=== PATIENT | female | born 1955 | race Caucasian/White ===

== ENCOUNTER → 2016-02-28 | Outpatient (CLI) | payer OTHER ==
--- NOTE | 2016-02-28 15:44 | US ---
EXAMINATION TYPE: US thyroid st tissue head/neck DATE OF EXAM: 02/28/2016 3:27 PM COMPARISON: NONE CLINICAL HISTORY: US. GLAND SIZE: Right Lobe: 4.9 x 1.4 x 1.9 cm Overall Parenchyma: heterogenous Left Lobe: 4.9 x 1.7 x 1.9 cm Overall Parenchyma: heterogeneous Isthmus Thickness: 0.5 cm NODULES RIGHT: # of nodules measured on right: 0 LEFT: # of nodules measured on left: 0 IMPRESSION: Bilateral neck scanned, no abnormal lymphadenopathy noted.Gland is diffusely heterogene ous. No distinct nodules appreciated at this time. SONOGRAPHIC PATTERNS, ESTIMATED MALIGNANCY RISK AND FNA GUIDANCE FOR THYROID NODULES Sonographic Pattern: Benign Ultrasound Features: Purely Cystic Nodules (No Solid Component) Estimated Risk Of Malignancy, %: <1 FNA Size Cutoff (Largest Dimension): No Biopsy Sonographic Pattern: Very Low Suspicion Ultrasound Features: Spongiform Or Partially Cystic Nodules Without Any Of The Sonographic Features Described In Low, Inte rmediate Or High Suspicion Patterns. Estimated Risk Of Malignancy, %: <3 FNA Size Cutoff (Largest Dimension): Recommend FNA At > 2cm Or Observation Without FNA Sonographic Pattern: Low Suspicion Ultrasound Features: Isoechoic Or Hyperechoic Solid Nodule, Or Partially Cystic Nodule With Eccentric Solid Areas, Without Microcalcification, Irregular Margin Or Ete, Or Taller Than Wide Shape. Estimated Risk Of Malignancy, %: 5-10 FNA Size Cutoff (Largest Dimension): Recommend FNA At > 1.5cm Sonographic Pattern: Intermediate Suspicion Ultrasound Features: Hypoechoic Solid Nodule With Smooth Margins Without Microcalcifications, Ete, Or Taller Than Wide Sha pe. Estimated Risk Of Malignancy, %: 10-20 FNA Size Cutoff (Largest Dimension): Recommend FNA At > 1cm Sonographic Pattern: High Suspicion Ultrasound Features: Solid Hypoechoic Nodule Or Solid Hypoechoic Component Of A Partially Cystic Nodule With One Or More O f The Following Features: Irregular Margins (Infiltrative, Microlobulated), Microcalcifications, Tall er Than Wide Shape, Rim Calcifications With Small Extrusive Soft Tissue Component, Evidence Of Ete Estimated Risk Of Malignancy, %: >70-90 FNA Size Cutoff (Largest Dimension): Recommend FNA At > 1cm
== END | disposition home or self-care (01) ==
LOC: RADUSWWP 15:16
PROVIDERS: ATTEND Family Medicine
DX: E04.9 Nontoxic goiter, unspecified (principal)
CPT/HCPCS: 76536

== ENCOUNTER 2018-01-21 09:39 | Day surgery (SDC) | payer OTHER ==
[2018-01-18 12:28] VITALS: BMI 29.1
[2018-01-21 10:09] VITALS: TEMP 97.5
[2018-01-21] MEDS ORDERED: SODIUM CHLORIDE 0.9% 500 ML 500 ML IV ONE (10:13)
[2018-01-21] MEDS ORDERED: fentaNYL (PF) 50 MCG/ML 2 ML AMP ONE (12:44)
[2018-01-21] MEDS ORDERED: MIDAZOLAM 2 MG/2 ML VIAL ONE (12:44)
[2018-01-21] MEDS: BENZOCAINE SPRAY 1 CAN MUCOUS MEM ONE ×2 (12:55→13:00)
[2018-01-21] MEDS: fentaNYL (PF) 50 MCG/ML 2 ML AMP IVP ONE ×4 (13:00→13:12)
[2018-01-21] MEDS ORDERED: MIDAZOLAM 2 MG/2 ML VIAL IVP ONE ×2 (13:00→13:10)
[2018-01-21] MEDS: MIDAZOLAM 2 MG/2 ML VIAL IVP ONE ×3 (13:04→13:12)
[2018-01-21 13:37] VITALS: BP 124/68; PULSE 76
--- NOTE | 2018-01-21 13:54 | ECHOT ---
TRANSESOPHAGEAL ECHOCARDIOGRAM DATE OF SERVICE: 01/21/2018 PERFORMING PHYSICIAN: Alan Nash MD, [employer]. PROCEDURE PERFORMED: Transesophageal echocardiogram. 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 Because of that, a transesophageal echocardiogram was advised. COMPLICATION: None. LEVEL OF SEDATION: Moderate with sedation length of 10 minutes. PROCEDURE DESCRIPTION: After obtaining an informed consent, explaining the procedure, benefits, risks, complications and alternatives, the patient was brought to the transesophageal echocardiogram suite. A pulse oximetry and heart rate monitors were attached to the patient prior to the procedure. The patient's throat was sprayed using lidocaine locally. Following that, the patient was turned into left lateral position. A bite guard was placed and the patient was then sedated with the above doses of Versed and fentanyl in divided doses. Following that, the transesophageal echocardiogram probe was advanced through the bite guard into the mid esophagus where 2-D echocardiogram images as well as color Doppler images of various cardiac structures were obtained. We evaluated the interatrial septum using 2-D echocardiogram, color Doppler, and contrast study. The procedure was completed. There were no complications. FINDINGS: The left ventricular dimension and systolic function appeared to be within normal limits. Right ventricle appeared to be enlarged. The left atrium appeared to be within normal limits for dimension. The interatrial septum appeared to be intact without any evidence of shunt. The left atrial appendage appeared to be normal. The aortic valve was a trileaflet valve with mild aortic insufficiency. No aortic stenosis. The mitral valve seems to be normal with mild MR. There was moderate tricuspid regurgitation seen. CONCLUSION: 1. Normal left atrial appendage without any evidence of thrombus. 2. Intact interatrial septum without any evidence of shunt. 3. Normal left ventricular dimension and systolic function. 4. Dilated right ventricle with normal function. 5. Trileaflet aortic valve without stenosis with mild insufficiency. 6. Thickened mitral valve leaflets with mild mitral regurgitation. 7. Moderate tricuspid regurgitation was seen. No evidence of pericardial effusion indication. MMODL / IJN: [id number] /
[2018-01-21 13:56] VITALS: RESP 18
== END 2018-01-21 14:15 | disposition home or self-care (01) ==
LOC: CATHCVL 09:39
PROVIDERS: ATTEND Internal Medicine Interventional Cardiology
DX: I08.3 Combined rheumatic disorders of mitral, aortic and tricuspid valves (principal); I10 Essential (primary) hypertension; E78.5 Hyperlipidemia, unspecified; I73.9 Peripheral vascular disease, unspecified; F17.200 Nicotine dependence, unspecified, uncomplicated; Z79.82 Long term (current) use of aspirin; Z79.890 Hormone replacement therapy; Z79.899 Other long term (current) drug therapy; Z88.6 Allergy status to analgesic agent; Z88.1 Allergy status to other antibiotic agents; Z88.5 Allergy status to narcotic agent; Z88.0 Allergy status to penicillin; Z88.8 Allergy status to other drugs, medicaments and biological substances; Z91.09 Other allergy status, other than to drugs and biological substances
CPT/HCPCS: 93312; 93320; 93325; J2250; J3010

== ENCOUNTER 2018-04-30 08:45 | Inpatient (IN) | payer OTHER ==
[2018-04-30] MEDS ORDERED: ONDANSETRON 4 MG/2 ML VIAL IVP STA (08:59)
[2018-04-30] MEDS ORDERED: HYDROmorphone 0.5 MG/0.5 ML SYRINGE IVP STA (08:59)
--- NOTE | 2018-04-30 09:05 | ED ---
General Adult HPI - General Chief complaint: Abdominal Pain Stated complaint: Rt flank pain Time Seen by Provider: 04/30/18 08:52 Source: patient, RN notes reviewed Mode of arrival: wheelchair Limitations: no limitations - History of Present Illness Initial comments: 62-year-old female presents emergency Department with chief complaint of right- sided rib chest wall pain. Patient states that it started suddenly last night worsened today. Patient states is worse when she takes deep inspiration. Patient states she does feel short of breath because of the pain. Patient does admit that she had recent left knee surgery. She states that she had a meniscus repair by Dr. Dempsey. Patient denies any fever, chills. Patient does not take any blood thinners currently. Patient denies any nausea vomiting diarrhea constipation. Denies any abdominal pain no dysuria no hematuria. Patient took some callus morning with no relief of her symptoms. - Related Data Home Medications Medication Instructions Recorded Confirmed Atenolol [Tenormin] 25 mg PO DAILY 03/05/14 04/30/18 Omeprazole [PriLOSEC] 20 mg PO AC-BRKFST 03/05/14 04/30/18 Acetaminophen Tab [Tylenol] 1,000 mg PO Q6HR PRN 12/09/15 04/30/18 Aspirin 325 mg PO DAILY 01/18/18 04/30/18 Atorvastatin [Lipitor] 20 mg PO HS 01/18/18 04/30/18 Oxybutynin Chloride [Ditropan] 5 mg PO DAILY 01/18/18 04/30/18 Thyroid,Pork [[place] Thyroid] 60 mg PO DAILY 01/18/18 04/30/18 Vit C/E/Zn/Coppr/Lutein/Zeaxan 2 cap PO DAILY 01/18/18 04/30/18 [Preservision Areds 2 Softgel] Thyroid,Pork [[place] Thyroid] 90 mg PO DAILY 04/30/18 04/30/18 Allergies Allergy/AdvReac Type Severity Reaction Status Date / Time amoxicillin trihydrate Allergy Rash/Hives Verified 04/30/18 09:00 [From Augmentin] celecoxib [From Celebrex] Allergy Rapid Verified 04/30/18 09:00 Heart Rate cephalexin monohydrate Allergy Rash/Hives Verified 04/30/18 09:00 [From Keflex] codeine Allergy Rash/Hives Verified 04/30/18 09:00 hydrocodone bitartrate Allergy Rash/Hives Verified 04/30/18 09:00 [From Vicodin] Iodinated Contrast- Oral and Allergy Rash/Hives Verified 04/30/18 09:00 IV Dye [Iodinated Contrast Media - IV Dye] levofloxacin [From Levaquin] Allergy Rash/Hives Verified 04/30/18 09:00 potassium clavulanate Allergy Rash/Hives Verified 04/30/18 09:00 [From Augmentin] propoxyphene napsylate Allergy Rash/Hives Verified 04/30/18 09:00 [From Darvocet-N] rofecoxib [From Vioxx] Allergy Rash/Hives Verified 04/30/18 09:00 tramadol HCl [From Ultracet] Allergy Rash/Hives Verified 04/30/18 09:00 Review of Systems ROS Statement: Those systems with pertinent positive or pertinent negative responses have been documented in the HPI. ROS Other: All systems not noted in ROS Statement are negative. Past Medical History Past Medical History: GERD/Reflux, Hypertension, Thyroid Disorder Additional Past Medical History / Comment(s): UNSURE WHY SHE IS TAKING ATENOLOL, DENIES KNOWN HX OF HTN; STATES OCC PALPITATIONS R/T "EXCESS COFFEE"; SAW CV YRS AGO, LATER DIAGNOSED W/ AN ANXIETY ATTACK, hypothyroid, diverticulosis. History of Any Multi-Drug Resistant Organisms: None Reported Past Surgical History: Tubal Ligation Additional Past Surgical History / Comment(s): colonoscopy with benign polypectomy, bilateral cataract removals with lens implants. Past Anesthesia/Blood Transfusion Reactions: No Reported Reaction Past Psychological History: No Psychological Hx Reported, Anxiety, Depression Smoking Status: Former smoker Past Alcohol Use History: None Reported Past Drug Use History: None Reported - Past Family History Father Family Medical History: Myocardial Infarction ([place]) Additional Family Medical History / Comment(s): Father of a [place] at the age of 43yrs. Mother Family Medical History: Cancer Additional Family Medical History / Comment(s): Mother of colon cancer at the age of 54yrs. General Exam Limitations: no limitations General appearance: alert, in no apparent distress Head exam: Present: atraumatic, normocephalic, normal inspection Eye exam: Present: normal appearance, PERRL, EOMI. Absent: scleral icterus, conjunctival injection, periorbital swelling Neck exam: Present: normal inspection. Absent: tenderness, meningismus, lymphadenopathy Respiratory exam: Present: normal lung sounds bilaterally. Absent: respiratory distress, wheezes, rales, rhonchi, stridor, chest wall tenderness Cardiovascular Exam: Present: regular rate, normal rhythm, normal heart sounds. Absent: systolic murmur, diastolic murmur, rubs, gallop, clicks GI/Abdominal exam: Present: soft, normal bowel sounds. Absent: distended, tenderness, guarding, rebound, rigid Back exam: Absent: CVA tenderness (R), CVA tenderness (L) Neurological exam: Present: alert Skin exam: Present: warm, dry, intact, normal color. Absent: rash Course Vital Signs 04/30/18 08:47 Temperature 98.5 F Pulse Rate 84 Respiratory 18 Rate Blood Pressure 154/88 O2 Sat by Pulse 97 Oximetry EKG Findings - EKG Comments: EKG Findings:: EKG performed at 9:10 normal sinus rhythm with rate of 81 ND 1:30 QRS 76 QT/TC 370/429 Medical Decision Making - Medical Decision Making 62-year-old female presents for right-sided chest pain. Patient had lab work, CT of her chest secondary to elevated d-dimer. Patient is noted to have PE. Patient has no evidence of heart strain. Patient will be admitted on heparin. Patient is stable. - Lab Data Result diagrams: 04/30/18 09:10 04/30/18 09:10 Lab Results 04/30/18 04/30/18 04/30/18 Range/Units 09:10 09:10 09:10 WBC 7.2 (3.8-10.6) k/uL RBC 4.66 (3.80-5.40) m/uL Hgb 13.7 (11.4-16.0) gm/dL Hct 42.0 (34.0-46.0) % MCV 90.1 (80.0-100.0) fL MCH 29.4 (25.0-35.0) pg MCHC 32.7 (31.0-37.0) g/dL RDW 12.6 (11.5-15.5) % Plt Count 190 (150-450) k/uL Neutrophils % 78 % Lymphocytes % 11 % Monocytes % 7 % Eosinophils % 1 % Basophils % 0 % Neutrophils # 5.6 (1.3-7.7) k/uL Lymphocytes # 0.8 L (1.0-4.8) k/uL Monocytes # 0.5 (0-1.0) k/uL Eosinophils # 0.1 (0-0.7) k/uL Basophils # 0.0 (0-0.2) k/uL PT 9.6 (9.0-12.0) sec INR 0.9 (<1.2) APTT 25.8 (22.0-30.0) sec D-Dimer 3.63 H (<0.60) mg/L FEU Sodium 139 (137-145) mmol/L Potassium 4.7 (3.5-5.1) mmol/L Chloride 105 (98-107) mmol/L Carbon Dioxide 24 (22-30) mmol/L Anion Gap 10 mmol/L BUN 12 (7-17) mg/dL Creatinine 0.48 L (0.52-1.04) mg/dL Est GFR (CKD-EPI)AfAm >90 (>60 ml/min/1.73 sqM) Est GFR (CKD-EPI)NonAf >90 (>60 ml/min/1.73 sqM) Glucose 124 H (74-99) mg/dL Calcium 9.5 (8.4-10.2) mg/dL Magnesium 1.8 (1.6-2.3) mg/dL Total Bilirubin 1.0 (0.2-1.3) mg/dL AST 15 (14-36) U/L ALT 24 (9-52) U/L Alkaline Phosphatase 73 (38-126) U/L Troponin I (0.000-0.034) ng/mL Total Protein 7.3 (6.3-8.2) g/dL Albumin 4.2 (3.5-5.0) g/dL Lipase 54 (23-300) U/L 04/30/18 Range/Units 09:10 WBC (3.8-10.6) k/uL RBC (3.80-5.40) m/uL Hgb (11.4-16.0) gm/dL Hct (34.0-46.0) % MCV (80.0-100.0) fL MCH (25.0-35.0) pg MCHC (31.0-37.0) g/dL RDW (11.5-15.5) % Plt Count (150-450) k/uL Neutrophils % % Lymphocytes % % Monocytes % % Eosinophils % % Basophils % % Neutrophils # (1.3-7.7) k/uL Lymphocytes # (1.0-4.8) k/uL Monocytes # (0-1.0) k/uL Eosinophils # (0-0.7) k/uL Basophils # (0-0.2) k/uL PT (9.0-12.0) sec INR (<1.2) APTT (22.0-30.0) sec D-Dimer (<0.60) mg/L FEU Sodium (137-145) mmol/L Potassium (3.5-5.1) mmol/L Chloride (98-107) mmol/L Carbon Dioxide (22-30) mmol/L Anion Gap mmol/L BUN (7-17) mg/dL Creatinine (0.52-1.04) mg/dL Est GFR (CKD-EPI)AfAm (>60 ml/min/1.73 sqM) Est GFR (CKD-EPI)NonAf (>60 ml/min/1.73 sqM) Glucose (74-99) mg/dL Calcium (8.4-10.2) mg/dL Magnesium (1.6-2.3) mg/dL Total Bilirubin (0.2-1.3) mg/dL AST (14-36) U/L ALT (9-52) U/L Alkaline Phosphatase (38-126) U/L Troponin I <0.012 (0.000-0.034) ng/mL Total Protein (6.3-8.2) g/dL Albumin (3.5-5.0) g/dL Lipase (23-300) U/L Critical Care Time Critical Care Time: Yes Total Critical Care Time: 35 Critical Care Time: Total 35 minutes of critical care time were used to initially evaluated the patient, review past medical history, review medications, vitals. Patient had initial workup including labs. Lab work revealed elevated d-dimer concerns for PE given that she had recent left knee surgery. Patient only is on aspirin currently. CT shows evidence of bilateral PE, no evidence of heart strain. Troponin is negative at this time. There are nonspecific changes an EKG noted, case discussed with radiologist. Patient was started on high-dose heparin and will be admitted to the hospital with close observation under hospitalist with consult to pulmonology. Disposition Clinical Impression: Bilateral pulmonary embolism Disposition: ADMITTED IP TO THIS HOSP Condition: Fair Referrals: Oralia Bishop DO [Primary Care Provider] - 1-2 days
[2018-04-30 09:30] LABS: Basophils % (A) 0 %; Eosinophils # (A) 0.1 k/uL (0-0.7); Eosinophils % (A) 1 %; HGB 13.7 gm/dL (11.4-16.0); Lymphocytes # (A) 0.8 k/uL (1.0-4.8); Lymphocytes % (A) 11 %; MCH 29.4 pg (25.0-35.0); MCHC 32.7 g/dL (31.0-37.0); MCV 90.1 fL (80.0-100.0); Mean Platelet Volume 7.5; Monocytes # (A) 0.5 k/uL (0-1.0); Monocytes % (A) 7 %; Neutrophils # (A) 5.6 k/uL (1.3-7.7); Neutrophils % (A) 78 %; Platelet Count 190 k/uL (150-450); RBC 4.66 m/uL (3.80-5.40); RDW 12.6 % (11.5-15.5); WBC 7.2 k/uL (3.8-10.6)
[2018-04-30 09:39] LABS: ALT 24 U/L (9-52); AST 15 U/L (14-36); Albumin 4.2 g/dL (3.5-5.0); Alkaline Phosphatase 73 U/L (38-126); Anion Gap 10 mmol/L; Blood Urea Nitrogen 12 mg/dL (7-17); Calcium 9.5 mg/dL (8.4-10.2); Carbon Dioxide 24 mmol/L (22-30); Chloride 105 mmol/L (98-107); Glucose 124 mg/dL (74-99); Lipase 54 U/L (23-300); Magnesium 1.8 mg/dL (1.6-2.3); Potassium 4.7 mmol/L (3.5-5.1); Sodium 139 mmol/L (137-145); Total Protein 7.3 g/dL (6.3-8.2)
--- NOTE | 2018-04-30 09:42 | XR ---
EXAMINATION TYPE: XR chest 2V DATE OF EXAM: 04/30/2018 HISTORY: Chest Pain. REFERENCE: Previous study dated 04/24/2015. FINDINGS: The lungs remain clear. Pleural space are clear. The heart is not enlarged. IMPRESSION: NO ACTIVE CARDIOPULMONARY DISEASE.
[2018-04-30 09:49] LABS: INR 0.9 (<1.2); Partial Thromboplastin Time 25.8 sec (22.0-30.0); Prothrombin Time 9.6 sec (9.0-12.0)
[2018-04-30 09:57] LABS: D-Dimer 3.63 mg/L FEU (<0.60)
[2018-04-30] MEDS ORDERED: FAMOTIDINE 20 MG/2 ML VIAL IV STA (10:03)
[2018-04-30] MEDS ORDERED: diphenhydrAMINE 50 MG/ML 1 ML VIAL IVP STA (10:03)
[2018-04-30] MEDS ORDERED: methylPREDNISolone SOD SUCCI 125 MG/2 ML VIAL IV STA (10:03)
[2018-04-30] MEDS ORDERED: HEPARIN SODIUM,PORCINE 10,000 UNIT/ML 1 ML VIAL IV ONE (11:24)
[2018-04-30] MEDS ORDERED: HEPARIN SODIUM,PORCINE 5,000 UNIT/ML 1 ML VIAL IV PRN (11:24)
--- NOTE | 2018-04-30 11:27 | CT ---
EXAMINATION TYPE: CT chest angio for PE DATE OF EXAM: 04/30/2018 COMPARISON: None. HISTORY: Right sided Chest pain with shortness of breath. Post Knee procedure. CT DLP: 311.5 mGycm Automated exposure control for dose reduction was used. CONTRAST: CT Chest for pulmonary embolism performed with with IV Contrast, patient injected with 100 mL of Isov ue 370. FINDINGS: There is some apical scarring present bilaterally. There are diffuse emphysematous changes throughout both lungs. There is groundglass opacity in the right middle lobe. There is dependent atel ectasis at the lung bases bilaterally. There is no significant axillary, internal mammary, mediastinal or hilar adenopathy. There is pulmonary embolus present in the second and third order branches of the right lower lobe pul monary artery there is also small amount of thrombus in the left lower lobe pulmonary artery. The aor ta is normal in size without evidence of dissection. The heart is normal in size. There is no evidenc e of right heart strain. There is no pleural or pericardial fluid. Visualized upper abdominal structures are unremarkable. IMPRESSION: 1. THIS EXAMINATION IS POSITIVE FOR BILATERAL LOWER LOBE PULMONARY EMBOLI WITHOUT EVIDENCE OF HEART S TRAIN. 2. EMPHYSEMATOUS CHANGE. This report was phoned to Leodan Bobo in the ER time of reporting.
[2018-04-30] MEDS ORDERED: ONDANSETRON 4 MG/2 ML VIAL IVP PRN (11:37)
[2018-04-30] MEDS ORDERED: ACETAMINOPHEN TAB 325 MG TAB PO PRN (11:37)
[2018-04-30] MEDS ORDERED: NALOXONE 0.4 MG/ML 1 ML VIAL IV PRN (11:37)
[2018-04-30] MEDS: HEPARIN SOD,PORK IN 0.45% NACL 25,000 UNIT in 0.45% NACL 1 250ML.BAG IV SCH (12:18)
[2018-04-30 13:03] VITALS: BMI 28.7
[2018-04-30] MEDS: PANTOPRAZOLE 40 MG TABLET PO SCH (15:56)
[2018-04-30] MEDS: ATENOLOL 25 MG TAB PO SCH (15:56)
[2018-04-30] MEDS ORDERED: ASPIRIN 325 MG TAB PO STA (16:09)
[2018-04-30] MEDS: HYDROmorphone 0.5 MG/0.5 ML SYRINGE IVP PRN (16:10)
[2018-04-30] MEDS ORDERED: HYDROcodone/APAP 5-325MG 1 EACH TAB PO PRN (17:01)
--- NOTE | 2018-04-30 17:04 | P.HPIM ---
History of Present Illness H&P Date: 04/30/18 Chief Complaint: Right-sided chest pain Patient is a 62-year-old female with a known history of hypertension, hypothyroidism, GERD, peripheral vascular disease, history of nicotine addiction and recent history of left knee meniscal surgery on Wednesday came to ER with the complaints of right-sided chest pain mainly lower rib cage started in the evening yesterday and has been getting worse. Patient takes her says that pain gets worse with deep breathing and associated with shortness of breath. No headache or dizziness or lightheadedness. Patient otherwise denied any cough is from production. No fever no chills. Patient is currently taking aspirin 320 mg daily. Patient has been ambulating at home. Denied any otherwise recent illnesses. Denied any nausea vomiting and diarrhea. No history of prior blood clots. Patient was found to have elevated d-dimer level. CT angiogram showed positive for bilateral lower lobe pulmonary emboli without evidence of heart strain. Emphysematous change. Review of Systems Constitutional: Patient denies any fever or chills . No generalized weakness or weight loss. Abdomen: Patient denied nausea vomiting and diarrhea and abdominal pain. Cardiovascular: Patient denies any chest pain or short of breath no palpitations. Right lower chest pain.. Respiratory: patient denied any cough is from production. No shortness of breath Neurologic: Patient denied any numbness or tingling headache. Musculoskeletal: Patient denies any complaints of joint swelling or deformity. Skin: Negative Psychiatric: Negative Endocrine: No heat or cold intolerance. No recent weight gain. Genitourinary: No dysuria or hematuria. All other 14 point ROS negative except the above Past Medical History Past Medical History: GERD/Reflux, Hypertension, Thyroid Disorder Additional Past Medical History / Comment(s): UNSURE WHY SHE IS TAKING ATENOLOL, DENIES KNOWN HX OF HTN; STATES OCC PALPITATIONS R/T "EXCESS COFFEE"; SAW CV DR YRS AGO, LATER DIAGNOSED W/ AN ANXIETY ATTACK, hypothyroid, diverticulosis. History of Any Multi-Drug Resistant Organisms: None Reported Past Surgical History: Tubal Ligation Additional Past Surgical History / Comment(s): colonoscopy with benign polypectomy, bilateral cataract removals with lens implants. Past Anesthesia/Blood Transfusion Reactions: No Reported Reaction Past Psychological History: No Psychological Hx Reported, Anxiety, Depression Additional Psychological History / Comment(s): HX OF ANXIETY ATTACKS, NO CURRENT PROB. Denies current depression. Pt lives alone. She is independent. Smoking Status: Former smoker Past Alcohol Use History: None Reported Additional Past Alcohol Use History / Comment(s): Pt started smoking in 1974 and is less than 1 ppd smoker. Past Drug Use History: None Reported - Past Family History Father Family Medical History: Myocardial Infarction ([place]) Additional Family Medical History / Comment(s): Father of a [place] at the age of 43yrs. Mother Family Medical History: Cancer Additional Family Medical History / Comment(s): Mother of colon cancer at the age of 54yrs. Medications and Allergies Home Medications Medication Instructions Recorded Confirmed Type Atenolol [Tenormin] 25 mg PO DAILY 03/05/14 04/30/18 History Omeprazole [PriLOSEC] 20 mg PO AC-BRKFST 03/05/14 04/30/18 History Acetaminophen Tab [Tylenol] 1,000 mg PO Q6HR PRN 12/09/15 04/30/18 History Aspirin 325 mg PO DAILY 01/18/18 04/30/18 History Atorvastatin [Lipitor] 20 mg PO HS 01/18/18 04/30/18 History Oxybutynin Chloride [Ditropan] 5 mg PO DAILY 01/18/18 04/30/18 History Thyroid,Pork [[place] Thyroid] 60 mg PO DAILY 01/18/18 04/30/18 History Vit C/E/Zn/Coppr/Lutein/Zeaxan 2 cap PO DAILY 01/18/18 04/30/18 History [Preservision Areds 2 Softgel] Thyroid,Pork [[place] Thyroid] 90 mg PO DAILY 04/30/18 04/30/18 History Allergies Allergy/AdvReac Type Severity Reaction Status Date / Time amoxicillin trihydrate Allergy Rash/Hives Verified 04/30/18 09:00 [From Augmentin] celecoxib [From Celebrex] Allergy Rapid Verified 04/30/18 09:00 Heart Rate cephalexin monohydrate Allergy Rash/Hives Verified 04/30/18 09:00 [From Keflex] codeine Allergy Rash/Hives Verified 04/30/18 09:00 hydrocodone bitartrate Allergy Rash/Hives Verified 04/30/18 09:00 [From Vicodin] Iodinated Contrast- Oral and Allergy Rash/Hives Verified 04/30/18 09:00 IV Dye [Iodinated Contrast Media - IV Dye] levofloxacin [From Levaquin] Allergy Rash/Hives Verified 04/30/18 09:00 potassium clavulanate Allergy Rash/Hives Verified 04/30/18 09:00 [From Augmentin] propoxyphene napsylate Allergy Rash/Hives Verified 04/30/18 09:00 [From Darvocet-N] rofecoxib [From Vioxx] Allergy Rash/Hives Verified 04/30/18 09:00 tramadol HCl [From Ultracet] Allergy Rash/Hives Verified 04/30/18 09:00 Physical Exam Vitals: Vital Signs Temp Pulse Resp BP Pulse Ox 04/30/18 12:45 98 F 90 18 109/81 94 L 04/30/18 12:30 91 12 04/30/18 12:20 91 17 04/30/18 12:10 84 04/30/18 12:00 16 04/30/18 11:50 94 L 04/30/18 11:40 94 L 04/30/18 11:30 94 L 04/30/18 11:20 16 04/30/18 11:10 18 04/30/18 11:00 18 04/30/18 10:50 77 97 04/30/18 10:40 76 16 141/71 96 04/30/18 10:30 80 15 135/51 97 04/30/18 10:20 82 10 L 135/51 94 L 04/30/18 10:10 78 17 135/51 95 04/30/18 10:00 78 14 92 L 04/30/18 09:50 75 17 93 L 04/30/18 09:40 78 16 94 L 04/30/18 09:20 77 12 137/69 95 04/30/18 09:15 84 16 95 04/30/18 08:47 98.5 F 84 18 154/88 97 Intake and Output 04/29/18 04/30/18 04/30/18 22:59 06:59 14:59 Other: Weight 90.718 kg PHYSICAL EXAMINATION: Patient is lying in the bed comfortably, no acute distress, awake alert and oriented.. HEENT: Normocephalic. Neck is supple. Pupils reactive. Nostrils clear. Oral cavity is moist. Ears reveal no drainage. Neck reveals no JVD, carotid bruits, or thyromegaly. CHEST EXAMINATION: Trachea is central. Symmetrical expansion. Lung dickey clear to auscultation and percussion. CARDIAC: Normal S1, S2 with no gallops. No murmurs ABDOMEN: Soft. Bowel sounds normal. No organomegaly. No abdominal bruits. Extremities: reveal no edema. No clubbing or cyanosis Neurologically awake, alert, oriented x3 with well-coordinated movements. No focal deficits noted Skin: No rash or skin lesions. Psychiatric: Coperative. Nonsuicidal Musculoskeletal: No joint swelling or deformity. Normal range of motion. Left knee meniscal surgical site is bandaged. Results CBC & Chem 7: 04/30/18 09:10 04/30/18 09:10 Labs: Abnormal Lab Results - Last 24 Hours (Table) 04/30/18 04/30/18 04/30/18 Range/Units 09:10 09:10 09:10 Lymphocytes # 0.8 L (1.0-4.8) k/uL D-Dimer 3.63 H (<0.60) mg/L FEU Creatinine 0.48 L (0.52-1.04) mg/dL Glucose 124 H (74-99) mg/dL Thrombosis Risk Factor Assmnt - DVT/VTE Prophylaxis DVT/VTE Prophylaxis: Pharmacologic Prophylaxis ordered Assessment and Plan Assessment: Acute bilateral lower lobe pulmonary emboli. Likely provoked from recent surgery Right-sided Lower rib pleuritic chest pain. Recent left knee meniscal surgery about 6 days ago PVD GERD/Reflux, Hypertension Hypothyroidism Anxiety Previous hx of smoking. Plan. Patient will be continued on heparin drip. Continue with pain management with [place] 5. Patient was given Dilaudid in the ER. Right lower chest pain is improved. Continue the home medications and follow closely. We will change to oral anticoagulants once pain resolves. Further recommendations based on the clinical course. Time with Patient: Greater than 30
[2018-04-30] MEDS: ATORVASTATIN 20 MG TAB PO SCH (21:45)
[2018-05-01] MEDS: HYDROmorphone 0.5 MG/0.5 ML SYRINGE IVP PRN ×3 (00:16→21:41)
[2018-05-01 02:46] LABS: Basophils % (A) 0 %; Eosinophils % (A) 0 %; HGB 11.9 gm/dL (11.4-16.0); Lymphocytes % (A) 12 %; MCH 29.7 pg (25.0-35.0); MCHC 32.3 g/dL (31.0-37.0); MCV 91.9 fL (80.0-100.0); Mean Platelet Volume 8.1; Monocytes # (A) 0.5 k/uL (0-1.0); Monocytes % (A) 6 %; Neutrophils # (A) 6.9 k/uL (1.3-7.7); Neutrophils % (A) 81 %; Platelet Count 182 k/uL (150-450); RBC 4.02 m/uL (3.80-5.40); RDW 12.5 % (11.5-15.5); WBC 8.5 k/uL (3.8-10.6)
[2018-05-01 03:09] LABS: INR 2.1 (<1.2); Prothrombin Time 20.4 sec (9.0-12.0)
[2018-05-01] MEDS: HEPARIN SOD,PORK IN 0.45% NACL 25,000 UNIT in 0.45% NACL 1 250ML.BAG IV SCH ×2 (04:38→11:54)
[2018-05-01] MEDS: PANTOPRAZOLE 40 MG TABLET PO SCH (06:29)
[2018-05-01] MEDS: ASPIRIN 325 MG TAB PO SCH (08:09)
[2018-05-01] MEDS: ATENOLOL 25 MG TAB PO SCH (08:09)
[2018-05-01] MEDS: OXYBUTYNIN CHLORIDE 5 MG TAB PO SCH (08:10)
[2018-05-01] MEDS: THYROID, PORK 30 MG TAB PO SCH (08:10)
[2018-05-01] MEDS ORDERED: THYROID PORK 90 MG PO SCH (09:00)
[2018-05-01] MEDS ORDERED: [UNRECOGNIZED DRUG - OTHER] PO SCH (09:00)
[2018-05-01] MEDS: APIXABAN 5 MG TAB PO SCH (15:22)
[2018-05-01] MEDS: ATORVASTATIN 20 MG TAB PO SCH (21:34)
[2018-05-02 06:41] LABS: Basophils % (A) 0 %; Eosinophils # (A) 0.1 k/uL (0-0.7); Eosinophils % (A) 1 %; HCT 38.4 % (34.0-46.0); HGB 12.4 gm/dL (11.4-16.0); Lymphocytes # (A) 1.4 k/uL (1.0-4.8); Lymphocytes % (A) 17 %; MCHC 32.2 g/dL (31.0-37.0); MCV 90.1 fL (80.0-100.0); Monocytes # (A) 0.4 k/uL (0-1.0); Monocytes % (A) 4 %; Neutrophils # (A) 6.2 k/uL (1.3-7.7); Neutrophils % (A) 76 %; Platelet Count 198 k/uL (150-450); RBC 4.27 m/uL (3.80-5.40); RDW 12.9 % (11.5-15.5); WBC 8.1 k/uL (3.8-10.6)
[2018-05-02] MEDS: PANTOPRAZOLE 40 MG TABLET PO SCH (06:52)
[2018-05-02] MEDS: THYROID, PORK 30 MG TAB PO SCH (08:11)
[2018-05-02] MEDS: APIXABAN 5 MG TAB PO SCH (08:12)
[2018-05-02] MEDS: ATENOLOL 25 MG TAB PO SCH (08:12)
[2018-05-02] MEDS: ASPIRIN 325 MG TAB PO SCH (08:12)
[2018-05-02] MEDS: OXYBUTYNIN CHLORIDE 5 MG TAB PO SCH (08:12)
[2018-05-02 08:19] VITALS: RESP 18
--- NOTE | 2018-05-02 10:49 | P.PN ---
Subjective Progress Note Date: 05/01/18 Principal diagnosis: Bilateral pulmonary embolism acute Patient is a 62-year-old female with a known history of hypertension, hypothyroidism, GERD, peripheral vascular disease, history of nicotine addiction and recent history of left knee meniscal surgery on Wednesday came to ER with the complaints of right-sided chest pain mainly lower rib cage started in the evening yesterday and has been getting worse. Patient takes her says that pain gets worse with deep breathing and associated with shortness of breath. No headache or dizziness or lightheadedness. Patient otherwise denied any cough is from production. No fever no chills. Patient is currently taking aspirin 320 mg daily. Patient has been ambulating at home. Denied any otherwise recent illnesses. Denied any nausea vomiting and diarrhea. No history of prior blood clots. Patient was found to have elevated d-dimer level. CT angiogram showed positive for bilateral lower lobe pulmonary emboli without evidence of heart strain. Emphysematous change. 05/01/2018 Patient denied any complaints of chest pain or shortness of breath. Right lower chest pain with deep breathing is almost resolved. Heparin will be discontinued and patient be started on liquids and check for insurance coverage tomorrow morning. Anticipate discharge tomorrow with more intensive management and anticoagulation final recommendations. No fever no chills. No nausea vomiting or abdominal pain. No diarrhea or dysuria. No hematemesis or melena. Current medications reviewed. Objective - Vital Signs Vital signs: Vital Signs Temp 98.2 F 05/01/18 15:25 Pulse 70 05/01/18 16:00 Resp 18 05/01/18 15:25 BP 142/70 05/01/18 15:25 Pulse Ox 95 05/01/18 15:25 Intake & Output 04/30/18 05/01/18 05/01/18 18:59 06:59 18:59 Intake Total 1250.000 Output Total 400 400 Balance 850.000 -400 Weight 90.718 kg Intake: Intake, IV Titration 250.000 Amount Heparin Sod,Pork in 0.45% 250.000 NaCl 25,000 unit In 0.45 % NaCl 1 250ml.bag @ 18 UNITS/KG/HR 16.329 mls/hr IV .[id number] [facility] Rx#: [id number] Oral 1000 Output: Urine 400 400 Other: Voiding Method Bedside Commode # Voids 2 - Exam PHYSICAL EXAMINATION: Patient is lying in the bed comfortably, no acute distress, awake alert and oriented.. HEENT: Normocephalic. Neck is supple. Pupils reactive. Nostrils clear. Oral cavity is moist. Ears reveal no drainage. Neck reveals no JVD, carotid bruits, or thyromegaly. CHEST EXAMINATION: Trachea is central. Symmetrical expansion. Lung dickey clear to auscultation and percussion. CARDIAC: Normal S1, S2 with no gallops. No murmurs ABDOMEN: Soft. Bowel sounds normal. No organomegaly. No abdominal bruits. Extremities: reveal no edema. No clubbing or cyanosis Neurologically awake, alert, oriented x3 with well-coordinated movements. No focal deficits noted Skin: No rash or skin lesions. Psychiatric: Coperative. Nonsuicidal Musculoskeletal: No joint swelling or deformity. Normal range of motion. Left knee surgical site is intact. - Labs CBC & Chem 7: 05/02/18 05:54 04/30/18 09:10 Labs: Abnormal Lab Results - Last 24 Hours (Table) 05/01/18 05/01/18 05/01/18 Range/Units 02:03 02:03 09:23 PT 20.4 H (9.0-12.0) sec INR 2.1 H (<1.2) APTT 130.0 H* 41.7 H (22.0-30.0) sec Assessment and Plan Assessment: Acute bilateral lower lobe pulmonary emboli. Likely provoked from recent surgery Right-sided Lower rib pleuritic chest pain. Recent left knee meniscal surgery about 6 days ago PVD GERD/Reflux, Hypertension Hypothyroidism Anxiety Previous hx of smoking. Plan. Heparin drip was stopped and will be started o eliquis 10 mg twice a day for 1 week followed by 5 mg twice a day. Continue with pain management with [place] 5. Patient was given Dilaudid in the ER. Right lower chest pain is improved. Continue the home medications and follow closely. Further recommendations based on the clinical course. Time with Patient: Greater than 30
[2018-05-02 12:26] VITALS: BP 114/56; PULSE 64; TEMP 98.1
== END 2018-05-02 14:08 | disposition home or self-care (01) | DRG 176 ==
LOC: EC 08:45 → 3SCARD 11:41
PROVIDERS: ADMIT Hospitalist; ATTEND Hospitalist
DX: I26.99 Other pulmonary embolism without acute cor pulmonale (principal); E03.9 Hypothyroidism, unspecified; F41.1 Generalized anxiety disorder; I10 Essential (primary) hypertension; I73.9 Peripheral vascular disease, unspecified; K21.9 Gastro-esophageal reflux disease without esophagitis; R79.1 Abnormal coagulation profile; Z79.82 Long term (current) use of aspirin; Z79.899 Other long term (current) drug therapy; Z80.0 Family history of malignant neoplasm of digestive organs; Z82.49 Family history of ischemic heart disease and other diseases of the circulatory system; Z87.891 Personal history of nicotine dependence; Z98.42 Cataract extraction status, left eye; Z98.41 Cataract extraction status, right eye; Z96.1 Presence of intraocular lens; Z98.890 Other specified postprocedural states; Z60.2 Problems related to living alone; K57.90 Diverticulosis of intestine, part unspecified, without perforation or abscess without bleeding; Z86.010 Personal history of colon polyps; Z88.5 Allergy status to narcotic agent; Z88.0 Allergy status to penicillin; Z88.1 Allergy status to other antibiotic agents; Z91.041 Radiographic dye allergy status; Z79.890 Hormone replacement therapy
CPT/HCPCS: 36415; 71046; 71275; 80053; 83690; 83735; 83880; 84484; 85025; 85379; 85610; 85730; 93005; 96365; 96375; 96376; 99291

== ENCOUNTER → 2018-05-31 | Outpatient (CLI) | payer OTHER ==
--- NOTE | 2018-05-31 13:26 | US ---
EXAMINATION TYPE: US venous doppler duplex LE LT DATE OF EXAM: 05/31/2018 1:03 PM COMPARISON: CLINICAL HISTORY: left lower ext, pain and swelling M79.605. Bilateral PE x 1 month ago. Left leg sw shona. On blood thinners- [place]. April 25 meniscus repair. SIDE PERFORMED: Left TECHNIQUE: The lower extremity deep venous system is examined utilizing real time linear array sonog tia with graded compression, doppler sonography and color-flow sonography. VESSELS IMAGED: External Iliac Vein (EIV) Common Femoral Vein Deep Femoral Vein Greater Saphenous Vein * Femoral Vein Popliteal Vein Small Saphenous Vein * Proximal Calf Veins (* superficial vessels) Left Leg: Negative for DVT IMPRESSION: 1. Left lower extremity negative for deep venous thrombosis.
== END | disposition home or self-care (01) ==
LOC: RADUSWWP 12:45
PROVIDERS: ATTEND Family Medicine
DX: M79.605 Pain in left leg (principal)

== ENCOUNTER 2018-07-09 14:14 | Emergency (ER) | payer OTHER ==
[2018-07-09 14:18] VITALS: RESP 16; TEMP 98.3
--- NOTE | 2018-07-09 14:54 | ED ---
Extremity Problem HPI - General Source: patient, RN notes reviewed, old records reviewed Mode of arrival: ambulatory Limitations: no limitations <April Cobos - Last Filed: 07/09/18 15:47> <Janeen Max - Last Filed: 07/09/18 16:59> - General Chief complaint: Extremity Problem,Nontraumatic Stated complaint: Ankle/foot edema Time Seen by Provider: 07/09/18 14:20 - History of Present Illness Initial comments: 63-year-old female presents for his today with left lower extremity leg edema. Patient states that she has had this after walking around today and being active. Patient states she's had this happen before. She reports that when she follow-up with her PCP they ordered a Doppler ultrasound. That was negative time. Patient states that she's had history of stenting if in her leg. She denies any fevers or chills, trauma to the leg. (April Cobos) - Related Data Home Medications Medication Instructions Recorded Confirmed Atenolol [Tenormin] 25 mg PO DAILY 03/05/14 04/30/18 Omeprazole [PriLOSEC] 20 mg PO AC-BRKFST 03/05/14 04/30/18 Acetaminophen Tab [Tylenol] 1,000 mg PO Q6HR PRN 12/09/15 04/30/18 Aspirin 325 mg PO DAILY 01/18/18 04/30/18 Atorvastatin [Lipitor] 20 mg PO HS 01/18/18 04/30/18 Oxybutynin Chloride [Ditropan] 5 mg PO DAILY 01/18/18 04/30/18 Thyroid,Pork [[place] Thyroid] 60 mg PO DAILY 01/18/18 04/30/18 Vit C/E/Zn/Coppr/Lutein/Zeaxan 2 cap PO DAILY 01/18/18 04/30/18 [Preservision Areds 2 Softgel] Thyroid,Pork [[place] Thyroid] 90 mg PO DAILY 04/30/18 04/30/18 Previous Rx's Medication Instructions Recorded Apixaban [Eliquis] 5 mg PO BID 30 Days #60 tab 05/02/18 Apixaban [Eliquis] 10 mg PO BID 6 Days #12 tab 05/02/18 Allergies Allergy/AdvReac Type Severity Reaction Status Date / Time amoxicillin trihydrate Allergy Rash/Hives Verified 07/09/18 14:18 [From Augmentin] celecoxib [From Celebrex] Allergy Rapid Verified 07/09/18 14:18 Heart Rate cephalexin monohydrate Allergy Rash/Hives Verified 07/09/18 14:18 [From Keflex] codeine Allergy Rash/Hives Verified 07/09/18 14:18 hydrocodone bitartrate Allergy Rash/Hives Verified 07/09/18 14:18 [From Vicodin] Iodinated Contrast- Oral and Allergy Rash/Hives Verified 07/09/18 14:18 IV Dye [Iodinated Contrast Media - IV Dye] levofloxacin [From Levaquin] Allergy Rash/Hives Verified 07/09/18 14:18 potassium clavulanate Allergy Rash/Hives Verified 07/09/18 14:18 [From Augmentin] propoxyphene napsylate Allergy Rash/Hives Verified 07/09/18 14:18 [From Darvocet-N] rofecoxib [From Vioxx] Allergy Rash/Hives Verified 07/09/18 14:18 tramadol HCl [From Ultracet] Allergy Rash/Hives Verified 07/09/18 14:18 Review of Systems ROS Other: All systems not noted in ROS Statement are negative. <April Cobos - Last Filed: 07/09/18 15:47> ROS Other: All systems not noted in ROS Statement are negative. <Janeen Max - Last Filed: 07/09/18 16:59> ROS Statement: Those systems with pertinent positive or pertinent negative responses have been documented in the HPI. Past Medical History Past Medical History: GERD/Reflux, Hypertension, Thyroid Disorder Additional Past Medical History / Comment(s): UNSURE WHY SHE IS TAKING ATENOLOL, DENIES KNOWN HX OF HTN; STATES OCC PALPITATIONS R/T "EXCESS COFFEE"; SAW CV DR YRS AGO, LATER DIAGNOSED W/ AN ANXIETY ATTACK, hypothyroid, diverticulosis. History of Any Multi-Drug Resistant Organisms: None Reported Past Surgical History: Tubal Ligation Additional Past Surgical History / Comment(s): colonoscopy with benign polypectomy, bilateral cataract removals with lens implants. Past Anesthesia/Blood Transfusion Reactions: No Reported Reaction Past Psychological History: No Psychological Hx Reported, Anxiety, Depression Smoking Status: Former smoker Past Alcohol Use History: None Reported Past Drug Use History: None Reported - Past Family History Father Family Medical History: Myocardial Infarction (MT) Additional Family Medical History / Comment(s): Father of a MT at the age of 43yrs. Mother Family Medical History: Cancer Additional Family Medical History / Comment(s): Mother of colon cancer at the age of 54yrs. <April Cobos - Last Filed: 07/09/18 15:47> General Exam Limitations: no limitations General appearance: alert, in no apparent distress Head exam: Present: atraumatic, normocephalic, normal inspection Eye exam: Present: normal appearance ENT exam: Present: normal exam, mucous membranes moist Neck exam: Present: normal inspection. Absent: tenderness, meningismus, lymphadenopathy Respiratory exam: Present: normal lung sounds bilaterally. Absent: respiratory distress, wheezes, rales, rhonchi, stridor Cardiovascular Exam: Present: regular rate, normal rhythm, normal heart sounds. Absent: systolic murmur, diastolic murmur, rubs, gallop, clicks GI/Abdominal exam: Present: soft, normal bowel sounds. Absent: distended, tenderness, guarding, rebound, rigid Extremities exam: Present: normal inspection, full ROM, normal capillary refill. Absent: tenderness, pedal edema, joint swelling, calf tenderness Left Lower Leg exam: Present: normal inspection, full ROM Ankle exam: Present: normal inspection, full ROM Foot/Toe exam: Present: full ROM, swelling (Patient has swelling noted.). Absent: normal inspection Neurovascular tendon exam: Present: no vascular compromise Back exam: Present: normal inspection Neurological exam: Present: alert, oriented X3, CN II-XII intact Psychiatric exam: Present: normal affect, normal mood Skin exam: Present: warm, dry, intact, normal color. Absent: rash <April Cobos - Last Filed: 07/09/18 15:47> - General Exam Comments Initial Comments: Physical 63-year-old female. Alert and oriented 3. No significant distress. (April Cobos) Course Vital Signs 07/09/18 07/09/18 14:15 15:55 Temperature 98.3 F Pulse Rate 62 67 Respiratory 16 16 Rate Blood Pressure 131/63 128/60 O2 Sat by Pulse 100 99 Oximetry Medical Decision Making - Radiology Data Radiology results: report reviewed <April Cobos - Last Filed: 07/09/18 15:47> <Janeen Max - Last Filed: 07/09/18 16:59> - Medical Decision Making Is a 3-year-old female presents with left lower ankle and leg edema after standing on her leg all day. She reports that she is concerned for possible clot. She has minimal edema at this time. Patient Dopplers negative for DVT. Discharging with follow-up with her primary care doctor. Discussed just dependent edema and needs to wear compression stockings. (April Cobos) I was available for consultation in the emergency department. The history and physical exam were done by the Midlevel Provider. Medical decision making was done by the Midlevel Provider. I have reviewed the chart, however was not consulted specifically or made aware of this patient by the above midlevel provider and did not personally evaluate, interact with, or disposition this patient on the day of their visit Chart was dictated using [employer] dictation software. Attempts were made to correct any dictation errors however some typographical errors may persist. (Janeen Max) - Radiology Data Ultrasound is negative for DVT. (April Cobos) Disposition Is patient prescribed a controlled substance at d/c from ED?: No Time of Disposition: 15:48 <April Cobos - Last Filed: 07/09/18 15:47> <Janeen Max - Last Filed: 07/09/18 16:59> Clinical Impression: Dependent edema Disposition: HOME SELF-CARE Condition: Good Instructions (If sedation given, give patient instructions): Lymphedema (ED) Additional Instructions: Patient advised to follow-up with primary care doctor. Wear compression stockings. Rest, ice and elevate the leg. Return to emergency department if any alarming signs or symptoms occur. Referrals: Oralia Bishop DO [Primary Care Provider] - 1-2 days
--- NOTE | 2018-07-09 15:31 | US ---
EXAMINATION TYPE: US venous doppler duplex LE LT DATE OF EXAM: 07/09/2018 3:24 PM COMPARISON: US 05/31/2018 DOPPLER left lower extremity CLINICAL HISTORY: Pain. Left ankle pain and swelling x 1 day, patient on blood thinners. SIDE PERFORMED: Left TECHNIQUE: The lower extremity deep venous system is examined utilizing real time linear array sonog tia with graded compression, doppler sonography and color-flow sonography. VESSELS IMAGED: External Iliac Vein (EIV) Common Femoral Vein Deep Femoral Vein Greater Saphenous Vein * Femoral Vein Popliteal Vein Small Saphenous Vein * Proximal Calf Veins (* superficial vessels) There is normal flow, compressibility, vascular waveforms. Left Leg: Appears negative for DVT IMPRESSION: No evident deep venous arthrosis at or above the left knee. Follow-up as indicated.
[2018-07-09 16:04] VITALS: BP 128/60; PULSE 67
== END 2018-07-09 15:55 | disposition home or self-care (01) ==
LOC: EC 14:14
DX: R60.0 Localized edema (principal); K21.9 Gastro-esophageal reflux disease without esophagitis; I10 Essential (primary) hypertension; E07.9 Disorder of thyroid, unspecified; Z79.82 Long term (current) use of aspirin; Z79.890 Hormone replacement therapy; Z79.899 Other long term (current) drug therapy; Z88.0 Allergy status to penicillin; Z88.1 Allergy status to other antibiotic agents; Z88.5 Allergy status to narcotic agent; Z91.041 Radiographic dye allergy status; Z88.8 Allergy status to other drugs, medicaments and biological substances; Z88.6 Allergy status to analgesic agent; Z87.891 Personal history of nicotine dependence
CPT/HCPCS: 99284

== ENCOUNTER 2021-04-23 07:32 | Day surgery (SDC) | payer OTHER ==
[2021-04-21 10:32] VITALS: BMI 29.5
[2021-04-23] MEDS ORDERED: LACTATED RINGERS 1,000 ML IV SCH (07:47)
[2021-04-23] MEDS ORDERED: LIDOCAINE 1% (10MG/ML) FOR IV START INTRADERMA PRN (07:47)
[2021-04-23 08:06] VITALS: TEMP 97.7
--- NOTE | 2021-04-23 08:18 | P.GSHP ---
History of Present Illness H&P Date: 04/23/21 CHIEF COMPLAINT: GERD and colon screen HISTORY OF PRESENT ILLNESS: The patient is a 65-year-old female who presents with gastroesophageal reflux disease and need for colon screen. Upper and lower endoscopy were offered for further evaluation and management. PAST MEDICAL HISTORY: Please see list. PAST SURGICAL HISTORY: Please see list. MEDICATIONS: Please see list. ALLERGIES: Please see list. SOCIAL HISTORY: No illicit drug use FAMILY HISTORY: No reports of Crohn disease or ulcerative colitis. REVIEW OF ORGAN SYSTEMS: CONSTITUTIONAL: No reports of fevers or chills. GI: Denies any blood in stools or constipation. PHYSICAL EXAM: VITAL SIGNS: Stable GENERAL: Well-developed pleasant in no acute distress. HEENT: No scleral icterus. Extraocular movements grossly intact. Moist buccal mucosa. NECK: Supple without lymphadenopathy. CHEST: Unlabored respirations. Equal bilateral excursions. CARDIOVASCULAR: Regular rate and rhythm. Distal 2+ pulses. ABDOMEN: Soft, nondistended. MUSCULOSKELETAL: No clubbing, cyanosis, or edema. ASSESSMENT: 1. Gastroesophageal reflux disease 2. Colon screen. PLAN: 1. Recommend proceeding with an upper and lower endoscopy Past Medical History Past Medical History: GERD/Reflux, Hypertension, Osteoarthritis (OA), Pulmonary Embolus (PE), Thyroid Disorder Additional Past Medical History / Comment(s): occ migraines, "a little high blood pressure", PE 4 yrs ago, "weak bladder" History of Any Multi-Drug Resistant Organisms: None Reported Past Surgical History: Orthopedic Surgery, Tubal Ligation Additional Past Surgical History / Comment(s): bilateral cataract removals with lens implants. left knee arthroscopy, stent left leg Past Anesthesia/Blood Transfusion Reactions: No Reported Reaction Smoking Status: Former smoker - Past Family History Father Family Medical History: Myocardial Infarction (SC) Additional Family Medical History / Comment(s): Father of a [place] at the age of 43yrs. Mother Family Medical History: Cancer Additional Family Medical History / Comment(s): colon cancer Son(s) Family Medical History: Cancer Medications and Allergies Home Medications Medication Instructions Recorded Confirmed Type Atenolol [Tenormin] 25 mg PO DAILY 03/05/14 04/23/21 History Omeprazole [PriLOSEC] 40 mg PO AC-BRKFST 03/05/14 04/23/21 History Acetaminophen Tab [Tylenol] 1,000 mg PO Q6HR PRN 12/09/15 04/23/21 History Apixaban [Eliquis] 5 mg PO BID 30 Days #60 tab 05/02/18 04/23/21 Rx Famotidine [Pepcid] 40 mg PO QAM 04/21/21 04/23/21 History Meloxicam [Mobic] 15 mg PO DAILY 04/21/21 04/23/21 History Mirabegron [Myrbetriq] 50 mg PO DAILY 04/21/21 04/23/21 History Rosuvastatin [Crestor] 20 mg PO DAILY 04/21/21 04/23/21 History Thyroid,Pork [[employer] Thyroid] 90 mg PO QAM 04/21/21 04/23/21 History Allergies Allergy/AdvReac Type Severity Reaction Status Date / Time amoxicillin trihydrate Allergy Rash/Hives Verified 04/23/21 07:56 [From Augmentin] celecoxib [From Celebrex] Allergy Rapid Verified 04/23/21 07:56 Heart Rate cephalexin monohydrate Allergy Rash/Hives Verified 04/23/21 07:56 [From Keflex] codeine Allergy Rash/Hives Verified 04/23/21 07:56 hydrocodone bitartrate Allergy Rash/Hives Verified 04/23/21 07:56 [From Vicodin] Iodinated Contrast Media Allergy Rash/Hives Verified 04/23/21 07:56 [Iodinated Contrast Media - IV Dye] levofloxacin [From Levaquin] Allergy Rash/Hives Verified 04/23/21 07:56 potassium clavulanate Allergy Rash/Hives Verified 04/23/21 07:56 [From Augmentin] propoxyphene napsylate Allergy Rash/Hives Verified 04/23/21 07:56 [From Darvocet-N] rofecoxib [From Vioxx] Allergy Rash/Hives Verified 04/23/21 07:56 tramadol HCl [From Ultracet] Allergy Rash/Hives Verified 04/23/21 07:56 Surgical - Exam Vital Signs Temp Pulse Resp BP Pulse Ox 97.7 F 91 18 136/73 97 04/23/21 08:04 04/23/21 08:04 04/23/21 08:04 04/23/21 08:04 04/23/21 08:04
[2021-04-23] MEDS ORDERED: PROPOFOL 10 MG/ML 20 ML VIAL IV ONE (08:43)
[2021-04-23] MEDS ORDERED: LIDOCAINE 1% INJ 10MG/ML (20 ML MDV) ONE (08:43)
--- NOTE | 2021-04-23 08:56 | P.PCN ---
Date of Procedure: 04/23/21 Description of Procedure: PREOPERATIVE DIAGNOSIS: Gastroesophageal reflux disease. POSTOPERATIVE DIAGNOSIS: Gastritis. Gastroesophageal reflux disease. Diaphragmatic hiatal hernia OPERATION: Esophagogastroduodenoscopy with biopsies along antrum. SURGEON: Cristina Davalos MD ANESTHESIA: MAC. INDICATIONS: The patient is a 65-year-old female who presents with reflux disease. Benefits and risks of the procedure were described. Informed consent was obtained. DESCRIPTION: The patient was brought into the endoscopy suite and laid in the left lateral decubitus position. An Olympus gastroscope was passed along the posterior oropharynx down to the distal esophagus where the squamocolumnar junction was encountered at 40 cm from the incisors. The stomach was entered and no bile reflux was found. Additional findings are listed below. Biopsies with cold forceps were obtained of the antrum. The first through third portion of the duodenum was examined and unremarkable. Retroflexion of the scope confirmed Hill grade 3 lower esophageal valve. The squamocolumnar junction demonstrated LA grade B erosive esophagitis. The stomach was desufflated. The patient tolerated the procedure well. FINDINGS: Squamocolumnar junction 40 cm from the incisors. Diaphragmatic hiatus at 41 cm. Hiatal hernia, 1 cm Hill grade 2 lower esophageal valve. LA grade B erosive esophagitis. No active duodenitis. Chronic gastritis RECOMMENDATIONS: Upper endoscopy as needed.
--- NOTE | 2021-04-23 09:18 | P.PCN ---
Date of Procedure: 04/23/21 Description of Procedure: PREOPERATIVE DIAGNOSIS: Personal history colon polyps Colonoscopy screening. POSTOPERATIVE DIAGNOSIS: Personal history colon polyps Colonoscopy screening. Diverticulosis, scattered. OPERATION: Colonoscopy to the ascending colon. SURGEON: Cristina Davalos MD. ANESTHESIA: MAC. INDICATIONS: The patient is a 65-year-old female who presents for colonoscopy screening. Last colonoscopy over 5 years ago. Benefits and risks were described and informed consent was obtained. DESCRIPTION OF PROCEDURE: The patient had undergone Sutab prep. The patient had been brought into the operating room and laid in the left lateral decubitus position. After adequate intravenous sedation, the rectum was examined with 2% lidocaine jelly. No external hemorrhoids were encountered. The rectal tone was within normal limits. No lesions were palpated in the rectal vault. An Olympus colonoscope was advanced to the ascending colon were clearly viewed. The prep was excellent. Scattered diverticulosis was encountered. No colonic polyps were found. No evidence of focal colitis was found. Retroflexion of the scope demonstrated grade 1 internal hemorrhoids without active bleeding or inflammation. The colon was desufflated. The patient had tolerated the procedure well. Withdrawal time was over 6 minutes. FINDINGS: Aronchick preparation quality scale 1 (1-5) Internal hemorrhoids, grade 1 No external prolapsed hemorrhoids. No arteriovenous malformations. No adenomatous polyps. No focal colitis. Scattered diverticulosis RECOMMENDATIONS: Lower endoscopy in 5 years, 2026 Plan - Discharge Summary New Discharge Prescriptions: Continue Omeprazole [PriLOSEC] 40 mg PO AC-BRKFST Atenolol [Tenormin] 25 mg PO DAILY Acetaminophen Tab [Tylenol] 1,000 mg PO Q6HR PRN PRN Reason: Pain Apixaban [Eliquis] 5 mg PO BID 30 Days #60 tab Mirabegron [Myrbetriq] 50 mg PO DAILY Meloxicam [Mobic] 15 mg PO DAILY Thyroid,Pork [[place] Thyroid] 90 mg PO QAM Famotidine [Pepcid] 40 mg PO QAM Rosuvastatin [Crestor] 20 mg PO DAILY Discharge Medication List Atenolol [Tenormin] 25 mg PO DAILY 03/05/14 [History] Omeprazole [PriLOSEC] 40 mg PO AC-BRKFST 03/05/14 [History] Acetaminophen Tab [Tylenol] 1,000 mg PO Q6HR PRN 12/09/15 [History] Apixaban [Eliquis] 5 mg PO BID 30 Days #60 tab 05/02/18 [Rx] Famotidine [Pepcid] 40 mg PO QAM 04/21/21 [History] Meloxicam [Mobic] 15 mg PO DAILY 04/21/21 [History] Mirabegron [Myrbetriq] 50 mg PO DAILY 04/21/21 [History] Rosuvastatin [Crestor] 20 mg PO DAILY 04/21/21 [History] Thyroid,Pork [[place] Thyroid] 90 mg PO QAM 04/21/21 [History] Follow up Appointment(s)/Referral(s): Cristina Davalos MD [STAFF PHYSICIAN] - 05/13/21 Patient Instructions/Handouts: *Surgery [facility] - (Anesthesia) Endoscopy Discharge Instructions, Colonoscopy (DC), Upper Endoscopy (DC), Diverticulosis Diet (GEN), Diverticulosis (GEN), Hiatal Hernia (DC) Activity/Diet/Wound Care/Special Instructions: Repeat colonoscopy in 5 years, 2026 Discharge Disposition: HOME SELF-CARE
[2021-04-23 09:29] VITALS: BP 143/65; PULSE 75; RESP 18
== END 2021-04-23 10:01 | disposition home or self-care (01) ==
LOC: ORWHC2ENDO 07:32
PROVIDERS: ATTEND Surgery Plastic and Reconstructive Surgery
DX: Z12.11 Encounter for screening for malignant neoplasm of colon (principal); K57.30 Diverticulosis of large intestine without perforation or abscess without bleeding; K29.50 Unspecified chronic gastritis without bleeding; K64.0 First degree hemorrhoids; K44.9 Diaphragmatic hernia without obstruction or gangrene; K22.10 Ulcer of esophagus without bleeding; K21.9 Gastro-esophageal reflux disease without esophagitis; Z86.010 Personal history of colon polyps; I10 Essential (primary) hypertension; M19.90 Unspecified osteoarthritis, unspecified site; Z86.711 Personal history of pulmonary embolism; E07.9 Disorder of thyroid, unspecified; G43.909 Migraine, unspecified, not intractable, without status migrainosus; Z98.51 Tubal ligation status; Z98.42 Cataract extraction status, left eye; Z98.41 Cataract extraction status, right eye; Z96.1 Presence of intraocular lens; Z95.820 Peripheral vascular angioplasty status with implants and grafts; Z98.890 Other specified postprocedural states; Z87.891 Personal history of nicotine dependence; Z82.49 Family history of ischemic heart disease and other diseases of the circulatory system; Z80.0 Family history of malignant neoplasm of digestive organs; Z79.01 Long term (current) use of anticoagulants; Z79.1 Long term (current) use of non-steroidal anti-inflammatories (NSAID); Z79.890 Hormone replacement therapy; Z79.899 Other long term (current) drug therapy; Z88.5 Allergy status to narcotic agent; Z88.0 Allergy status to penicillin; Z88.8 Allergy status to other drugs, medicaments and biological substances; Z91.041 Radiographic dye allergy status
CPT/HCPCS: 88305; 43239; J2001; J2704; G0105; 45378

== ENCOUNTER 2021-08-07 16:50 | Emergency (ER) | payer OTHER ==
[2021-08-07 18:38] VITALS: RESP 18; TEMP 97.5
--- NOTE | 2021-08-07 19:40 | XR ---
EXAMINATION TYPE: XR knee complete LT DATE OF EXAM: 08/07/2021 7:14 PM INDICATION: Patient age:Female; 66 years old; Reason for study: fall; COMPARISON: None. TECHNIQUE: The Left knee(s) was examined in 3, AP lateral and oblique. Projections. FINDINGS: No evidence of any acute osseous pathology, joint space narrowing, soft tissue swelling, or joint effusion is noted. Mild osteophyte formation of the tibial plateau and patella. IMPRESSION: 1. No acute osseous pathology. 2. Mild tricompartmental osteoarthritic changes.
--- NOTE | 2021-08-07 19:41 | XR ---
EXAMINATION TYPE: XR ankle complete LT DATE OF EXAM: 08/07/2021 7:14 PM INDICATION: Patient age:Female; 66 years old; Reason for study: fall; COMPARISON: None TECHNIQUE: The left ankle is imaged in frontal lateral and oblique projections. FINDINGS: No evidence of acute fracture. There is soft tissue swelling along the anterior, medial and dorsal as pect of the foot. There is plantar calcaneal spurring. No radiopaque foreign bodies. IMPRESSION: Soft tissue swelling along the anterior, medial and dorsum of the foot. No definitive fracture identi fied.
--- NOTE | 2021-08-07 23:48 | ED ---
Lower Extremity Injury HPI - General Chief Complaint: Extremity Injury, Lower Stated Complaint: Fall,Lt Knee Pain,Pt on Blood Thinners Time Seen by Provider: 08/07/21 23:23 Source: patient, RN notes reviewed Mode of arrival: wheelchair Limitations: no limitations - History of Present Illness Initial Comments: This is a pleasant 66-year-old female who was at a local shopping center when she caught her left toe on an uneven area of pavement. Patient then came down on her left knee. Patient is able to ambulate with increased pain and otalgia. Complaining of pain to the anterior aspect of left knee which is exacerbated by movement and palpation. Mild pain at the ankle, no radiation elsewhere. Patient took Tylenol prior to me seeing her. Patient does have a history of a torn meniscus in the left knee. There was no head or neck injury. Patient is on anticoagulant medication. No hip pain. No pelvis pain. There is no preceding symptomology. No headache, no fever or chills, no changes in vision or hearing, no sore throat or difficulty with speech, no neck pain, no chest pain or shortness of breath, no abdominal pain, no nausea or vomiting, no changes in urination or bowel movements, no numbness or tingling, no skin rashes or lesions. 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] 90 mg PO QAM 04/21/21 04/23/21 Previous Rx's Medication Instructions Recorded Apixaban [Eliquis] 5 mg PO BID 30 Days #60 tab 05/02/18 Allergies Allergy/AdvReac Type Severity Reaction Status Date / Time amoxicillin trihydrate Allergy Rash/Hives Verified 08/07/21 18:38 [From Augmentin] celecoxib [From Celebrex] Allergy Rapid Verified 08/07/21 18:38 Heart Rate cephalexin monohydrate Allergy Rash/Hives Verified 08/07/21 18:38 [From Keflex] codeine Allergy Rash/Hives Verified 08/07/21 18:38 hydrocodone bitartrate Allergy Rash/Hives Verified 08/07/21 18:38 [From Vicodin] Iodinated Contrast Media Allergy Rash/Hives Verified 08/07/21 18:38 [Iodinated Contrast Media - IV Dye] levofloxacin [From Levaquin] Allergy Rash/Hives Verified 08/07/21 18:38 potassium clavulanate Allergy Rash/Hives Verified 08/07/21 18:38 [From Augmentin] propoxyphene napsylate Allergy Rash/Hives Verified 08/07/21 18:38 [From Darvocet-N] rofecoxib [From Vioxx] Allergy Rash/Hives Verified 08/07/21 18:38 tramadol HCl [From Ultracet] Allergy Rash/Hives Verified 08/07/21 18:38 Review of Systems ROS Statement: Those systems with pertinent positive or pertinent negative responses have been documented in the HPI. ROS Other: All systems not noted in ROS Statement are negative. Past Medical History Past Medical History: GERD/Reflux, Hypertension, Osteoarthritis (OA), Pulmonary Embolus (PE), Thyroid Disorder Additional Past Medical History / Comment(s): occ migraines, "a little high blood pressure", PE 4 yrs ago, "weak bladder" History of Any Multi-Drug Resistant Organisms: None Reported Past Surgical History: Orthopedic Surgery, Tubal Ligation Additional Past Surgical History / Comment(s): bilateral cataract removals with lens implants. left knee arthroscopy, stent left leg Past Anesthesia/Blood Transfusion Reactions: No Reported Reaction Past Psychological History: No Psychological Hx Reported Smoking Status: Former smoker Past Alcohol Use History: None Reported Past Drug Use History: None Reported - Past Family History Father Family Medical History: Myocardial Infarction (NE) Additional Family Medical History / Comment(s): Father of a NE at the age of 43yrs. Mother Family Medical History: Cancer Additional Family Medical History / Comment(s): colon cancer Son(s) Family Medical History: Cancer General Exam Limitations: no limitations General appearance: alert, in no apparent distress Head exam: Present: atraumatic, normocephalic, normal inspection Eye exam: Present: normal appearance, EOMI. Absent: scleral icterus, conjunctival injection, periorbital swelling ENT exam: Present: normal exam, mucous membranes moist, normal external ear exam Neck exam: Present: normal inspection, full ROM. Absent: tenderness, meningismus, lymphadenopathy Respiratory exam: Present: normal lung sounds bilaterally. Absent: respiratory distress, wheezes, rales, rhonchi, stridor, chest wall tenderness, accessory muscle use Cardiovascular Exam: Present: regular rate, normal rhythm, normal heart sounds. Absent: systolic murmur, diastolic murmur, rubs, gallop, clicks GI/Abdominal exam: Present: soft. Absent: distended, tenderness, guarding, rebound, rigid Extremities exam: Present: full ROM, normal capillary refill. Absent: normal inspection (Patient has edema and an abrasion noted to the anterior aspect of left knee. No crepitus. Full range of motion with increased pain. Evidence of mild effusion. Mr. stable as tested. Left ankle has mild edema with no bony point tenderness. Ligaments are stable. Pedal pulses are 2+ out of 4. ), tenderness, pedal edema, joint swelling, calf tenderness Back exam: Present: normal inspection, full ROM. Absent: paraspinal tenderness, vertebral tenderness, rash noted Neurological exam: Present: alert, oriented X3, CN II-XII intact, abnormal gait (Mild antalgia) Psychiatric exam: Present: normal affect, normal mood Skin exam: Present: warm, dry, intact, normal color, abrasion (Left anterior knee). Absent: rash, cyanosis, diaphoretic, erythema, urticaria, vesicles, petechiae, pallor, mottled Course Vital Signs 08/07/21 18:35 Temperature 97.5 F L Pulse Rate 68 Respiratory 18 Rate Blood Pressure 125/68 O2 Sat by Pulse 99 Oximetry Medical Decision Making - Medical Decision Making Patient has what appears to be contusion of the left knee. Mild left ankle sprain. I did discuss x-ray findings with the patient. Discussed the possibility of internal derangement. Discussed possibly of occult fracture. We'll place the patient in a knee immobilizer. Patient is able to ambulate. We'll have the patient follow-up with orthopedics. Patient understands this plan. All questions answered. Patient was told to return to the ER for any signs or symptoms worsen. Told to return immediately if any other problems arise. All questions answered. Treatment plan discussed. Patient in agreement Every effort has been made to ensure accuracy of this dictation. However, due to the limitations of electronic medical records and dictation devices, errors in charting still occur. Adult Nurse Practitioner Dr. Boykin - Radiology Data Radiology results: report reviewed, image reviewed Disposition Clinical Impression: Contusion of left knee, initial encounter, Abrasion, left knee, initial encounter, Left ankle sprain Disposition: HOME SELF-CARE Condition: Good Instructions (If sedation given, give patient instructions): Ankle Sprain (ED), Knee Pain (ED) Additional Instructions: No headache, no fever or chills, no changes in vision or hearing, no sore throat or difficulty with speech, no neck pain, no chest pain or shortness of breath, no abdominal pain, no nausea or vomiting, no changes in urination or bowel movements, no numbness or tingling, no extremity pain, no skin rashes or lesions. Is patient prescribed a controlled substance at d/c from ED?: No Referrals: Jordan Mcintosh DO [Doctor of Osteopathic Medicine] - 1-2 days Time of Disposition: 23:41
[2021-08-08 00:41] VITALS: BP 120/68; PULSE 70
== END 2021-08-08 00:43 | disposition home or self-care (01) ==
LOC: EC 16:50
DX: S93.402A Sprain of unspecified ligament of left ankle, initial encounter (principal); S80.02XA Contusion of left knee, initial encounter; I10 Essential (primary) hypertension; K21.9 Gastro-esophageal reflux disease without esophagitis; E07.9 Disorder of thyroid, unspecified; Z87.891 Personal history of nicotine dependence; Z79.899 Other long term (current) drug therapy; Z88.8 Allergy status to other drugs, medicaments and biological substances; Z88.1 Allergy status to other antibiotic agents; Z88.5 Allergy status to narcotic agent; Z91.041 Radiographic dye allergy status; Z88.6 Allergy status to analgesic agent; Z79.890 Hormone replacement therapy; W01.0XXA Fall on same level from slipping, tripping and stumbling without subsequent striking against object, initial encounter
CPT/HCPCS: 73562; 73610; 99283; L1830

== ENCOUNTER → 2021-09-25 | Outpatient (CLI) | payer MEDICARE, OTHER ==
--- NOTE | 2021-09-25 15:05 | NM ---
EXAMINATION TYPE: NM hepatobiliary w EF DATE OF EXAM: 09/25/2021 COMPARISON: NONE CLINICAL INDICATION:Female, 66 years old with history of R14.0 ABDOMINAL DISTENSION R14.2 ERUCTATION; TECHNIQUE: After the intravenous administration of 4.26 mCi Tc 99m Mebrofenin hepatobiliary scintigra phy is performed. Immediate images post injection. FINDINGS: There is satisfactory initial accumulation of tracer by the liver. The gallbladder is visualized wit hin 14 minutes. The small bowel activity is noted within 6 minutes. At one hour 8 ounces of oral en sure plus is given to mimic CCK and gallbladder ejection fraction is calculated at 95 %, in the jason l range. Therefore there is no scintigraphic evidence of cystic or common bile duct obstruction to s uggest acute cholecystitis or gallbladder dyskinesia. IMPRESSION: Exam is within normal limits.
== END | disposition home or self-care (01) ==
LOC: RADNMMAIN 12:37
PROVIDERS: ATTEND Family Medicine
DX: R14.0 Abdominal distension (gaseous) (principal); R14.2 Eructation
CPT/HCPCS: 78226; A9537